=== PATIENT | male | born 1945 | race Hispanic/Latino ===

== ENCOUNTER 2020-09-28 14:12 | Observation (INO) | payer MEDICARE ==
[~2020-09-28] VITALS: Ht 160 cm; Wt 102.1 kg
[~2020-09-28 14:12] MED LIST: BENICAR40 MG PO; CLONIDINE HCL0.2 MG PO; CLOPIDOGREL75 MG PO; COREG25 MG PO; GLIMEPIRIDE2 MG PO; HYDRALAZINE HCL50 MG PO; LANTUS100 UNITS/ SQ; NATEGLINIDE120 MG PO; PRAVASTATIN SOD20 MG PO; WELLBUTRIN100 MG PO
[2020-09-28] MEDS ORDERED: SODIUM CHLORIDE 0.9% 250ML 250 ML IV ONE (15:00)
[2020-09-28] MEDS ORDERED: ONDANSETRON HCL INJ 2MG/ML 2ML 2 MG/ML VIAL IV PRN (15:30)
[2020-09-28] MEDS ORDERED: ACETAMINOPHEN 325 MG TAB PO PRN (15:30)
[2020-09-28] MEDS ORDERED: TRAMADOL HCL 50 MG TAB PO PRN (15:30)
[2020-09-28 15:52] VITALS: BP 166/76
[2020-09-28 16:02] LABS: BASOPHILS # (AUTO) 0.1 (0.0-0.1); BASOPHILS % 0.7 % (0.0-1.0); EOSINOPHILS # (AUTO) 0.3 (0.0-0.4); EOSINOPHILS % 3.5 % (0.0-6.0); HEMATOCRIT 27.7 % (38.2-49.6); HEMOGLOBIN 8.8 g/dL (14.0-18.0); LYMPHOCYTES # (AUTO) 1.3 (1.0-3.2); LYMPHOCYTES % 17.6 % (18.0-39.1); MEAN CORPUSCULAR HEMOGLOBIN 31.3 pg (28-32); MEAN CORPUSCULAR HGB CONC 31.8 g/dL (31-35); MEAN CORPUSCULAR VOLUME 98.6 fL (81-99); MONOCYTES # (AUTO) 0.6 (0.2-0.8); MONOCYTES % 7.9 % (4.4-11.3); PLATELET COUNT 235 x10e3/uL (140-360); RED BLOOD COUNT 2.81 x10e6/uL (4.3-5.7); RED CELL DISTRIBUTION WIDTH 13.8 % (11.7-14.4)
[2020-09-28 16:24] LABS: ALBUMIN 3.1 g/dL (3.5-5.0); ALKALINE PHOSPHATASE 73 IU/L (40-150); ANION GAP 13.7 mmol/L (8-16); BLOOD UREA NITROGEN 65 mg/dL (7-26); BUN/CREATININE RATIO 13 (6-25); CALCIUM 8.2 mg/dL (8.4-10.2); CARBON DIOXIDE 21 mmol/L (22-29); CHLORIDE 111 mmol/L (98-107); CREATININE, SERUM 5.18 mg/dL (0.72-1.25); EST GLOMERULAR FILTRATION RATE 11 ML/MIN (60-); GLUCOSE 185 mg/dL (74-118); POTASSIUM 4.7 mmol/L (3.5-5.1); SODIUM 141 mmol/L (136-145)
[2020-09-28 16:25] LABS: ALANINE AMINOTRANSFERASE < 6 IU/L (0-55)
[2020-09-28 16:56] VITALS: BP 166/76
[2020-09-28 17:01] LABS: FERRITIN 130.65 ng/mL (21.81-274.66)
[2020-09-28 17:58] VITALS: BP 166/76
[2020-09-28] MEDS ORDERED: CALCITRIOL0.5 MCG PO (18:35)
[2020-09-28] MEDS ORDERED: FUROSEMIDE40 MG PO (18:35)
[2020-09-28] MEDS ORDERED: OMEPRAZOLE40 MG (18:35)
[2020-09-28] MEDS ORDERED: ZOLPIDEM TARTRAT5 MG PO (18:35)
[2020-09-28] MEDS ORDERED: FERROUS SULFAT325 MG (18:35)
[2020-09-28 20:00] VITALS: BP 165/56
[2020-09-28 21:00] VITALS: BP 166/76
[2020-09-28] MEDS: CLONIDINE HCL 0.2 MG TAB PO SCH (21:00)
[2020-09-28] MEDS ORDERED: ZOLPIDEM TARTRATE 5 MG TAB PO SCH (21:00)
[2020-09-28] MEDS ORDERED: PRAVASTATIN 20 MG TAB PO SCH (21:00)
[2020-09-28] MEDS ORDERED: INSULIN GLARGINE 100 UNITS/ML VIAL SQ SCH (21:00)
[2020-09-28] MEDS: FERROUS SULFATE 325 MG TAB PO SCH (21:00)
[2020-09-29 00:29] VITALS: BP 148/66
[2020-09-29 04:00] VITALS: BP 142/67
[2020-09-29] MEDS ORDERED: SODIUM CHLORIDE 0.9% 250ML 250 ML ONE (05:02)
[2020-09-29] MEDS ORDERED: PANTOPRAZOLE SOD 40 MG TABEC PO SCH (07:30)
[2020-09-29 07:56] VITALS: BP 158/71
[2020-09-29] MEDS ORDERED: FUROSEMIDE 20 MG TAB PO SCH (09:00)
[2020-09-29] MEDS ORDERED: BUPROPION HCL 150 MG TABCR PO SCH (09:00)
[2020-09-29] MEDS ORDERED: IRON SUCROSE 100 MG in SODIUM CHLORIDE 0.9% 100 ML 100 ML IV SCH (09:00)
[2020-09-29] MEDS ORDERED: CALCITRIOL 0.25 MCG CAP PO SCH (09:00)
[2020-09-29] MEDS: GLIMEPIRIDE 2 MG TAB PO SCH ×2 (09:45→16:44)
[2020-09-29] MEDS: CARVEDILOL 12.5 MG TAB PO SCH ×2 (09:51→16:44)
[2020-09-29] MEDS: CLONIDINE HCL 0.2 MG TAB PO SCH ×2 (09:51→16:55)
[2020-09-29] MEDS: HYDRALAZINE HCL 100 MG TABLET PO SCH ×2 (09:58→16:55)
[2020-09-29] MEDS: FERROUS SULFATE 325 MG TAB PO SCH ×2 (09:58→16:55)
[2020-09-29] MEDS: SODIUM BICARBONATE 650 MG TAB PO SCH ×2 (09:59→16:55)
[2020-09-29 10:04] VITALS: BP 158/71
[2020-09-29 11:09] LABS: BASOPHILS % 0.5 % (0.0-1.0); EOSINOPHILS # (AUTO) 0.2 (0.0-0.4); EOSINOPHILS % 3.9 % (0.0-6.0); HEMATOCRIT 30.3 % (38.2-49.6); HEMOGLOBIN 9.9 g/dL (14.0-18.0); LYMPHOCYTES # (AUTO) 1.2 (1.0-3.2); LYMPHOCYTES % 20.6 % (18.0-39.1); MEAN CORPUSCULAR HEMOGLOBIN 30.6 pg (28-32); MEAN CORPUSCULAR HGB CONC 32.7 g/dL (31-35); MEAN CORPUSCULAR VOLUME 93.5 fL (81-99); MONOCYTES # (AUTO) 0.6 (0.2-0.8); NEUTROPHILS # (AUTO) 3.8 (2.1-6.9); NEUTROPHILS % 64.7 % (38.7-80.0); PLATELET COUNT 213 x10e3/uL (140-360); RED BLOOD COUNT 3.24 x10e6/uL (4.3-5.7); RED CELL DISTRIBUTION WIDTH 14.5 % (11.7-14.4)
[2020-09-29 11:36] LABS: ANION GAP 15.4 mmol/L (8-16); CALCIUM 7.8 mg/dL (8.4-10.2); CREATININE, SERUM 4.97 mg/dL (0.72-1.25); POTASSIUM 4.4 mmol/L (3.5-5.1)
[2020-09-29 11:46] VITALS: BP 137/54
[2020-09-29] MEDS ORDERED: ONDANSETRON HCL 4 MG ORAL DISINTEGRATING TAB PO PRN (14:15)
[2020-09-29 15:39] VITALS: BP 152/60
== END 2020-09-29 18:32 | disposition home or self-care (01) ==
LOC: INTOOBSV 14:38 → MED/SURG3 14:38
PROVIDERS: ADMIT Internal Medicine; ATTEND Internal Medicine
DX: I12.0 Hypertensive chronic kidney disease with stage 5 chronic kidney disease or end stage renal disease (principal); E11.22 Type 2 diabetes mellitus with diabetic chronic kidney disease; E87.2 Acidosis; N18.5 Chronic kidney disease, stage 5; D63.1 Anemia in chronic kidney disease; Z83.3 Family history of diabetes mellitus; E66.01 Morbid (severe) obesity due to excess calories; Z68.39 Body mass index [BMI] 39.0-39.9, adult
CPT/HCPCS: 36415; 80048; 80053; 82270; 82728; 82948; 83036; 83540; 84466; 85025; 86850; 86870; 86880; 86900; 86905; 86920; 86922; 99001; G0378; J1756; J1815; J7050; P9016